=== PATIENT | female | born 1975 | race Caucasian/White ===

== ENCOUNTER 2017-05-20 06:44 | Emergency (ER) | payer SELFPAY ==
[~2017-05-20] VITALS: Ht 162.6 cm; Wt 78.7 kg
[2017-05-20 06:48] VITALS: BP 180/116; PULSE 86; RESP 18; TEMP 97.7; O2SAT 98
--- NOTE | 2017-05-20 07:05 | PD ---
HPI Chief Complaint: Musculoskeletal Complaint Time Seen by Provider: 06:48 Travel History International Travel<30 days: No Contact w/Intl Traveler<30days: No Traveled to known affect area: No History of Present Illness HPI 41 year-old female complains of left foot pain. Patient twisted the left foot about 4 months ago. Patient states that she has persistent pain to the left foot since then. Patient states that the pain is worse recently. Patient denies any other injury. Patient states the pain is sharp pain localized to the dorsal aspect of the left foot. Patient denies any pain radiation. Patient states that the pain is worse with weightbearing. PFSH Past Medical History Diminished Hearing: No Immunizations Current: Yes : 4 Para: 4 Past Surgical History Gynecologic Surgery: Yes (endomytriosis) Social History Alcohol Use: Yes (2 beers daily) Tobacco Use: No Substance Use: No Allergies-Medications (Allergen,Severity, Reaction): Coded Allergies: hydrocodone (Unverified Allergy, Severe, Itching, 05/20/17) Reported Meds & Prescriptions Reported Meds & Active Scripts Active No Active Prescriptions or Reported Medications Review of Systems General / Constitutional: No: Fever Eyes: No: Visual changes HENT: No: Headaches Cardiovascular: No: Chest Pain or Discomfort Respiratory: No: Shortness of Breath Gastrointestinal: No: Abdominal Pain Genitourinary: No: Dysuria Musculoskeletal: Positive: Pain Skin: No Rash Neurologic: No: Weakness Psychiatric: No: Depression Endocrine: No: Polydipsia Hematologic/Lymphatic: No: Easy Bruising Physical Exam Narrative GENERAL: Well-nourished, well-developed patient. SKIN: Focused skin assessment warm/dry. HEAD: Normocephalic. EYES: No scleral icterus. No injection or drainage. NECK: Supple, trachea midline. No JVD or lymphadenopathy. CARDIOVASCULAR: Regular rate and rhythm without murmurs, gallops, or rubs. RESPIRATORY: Breath sounds equal bilaterally. No accessory muscle use. GASTROINTESTINAL: Abdomen soft, non-tender, nondistended. MUSCULOSKELETAL: No cyanosis, or edema. Patient has moderate tenderness on palpation dorsal aspect of the left foot. Mild soft tissue swelling noted. Full range of motion of the toes. BACK: Nontender without obvious deformity. No CVA tenderness. Data Data Last Documented VS Vital Signs Date Time Temp Pulse Resp B/P (MAP) Pulse Ox O2 Delivery O2 Flow Rate FiO2 1/24/18 06:48 97.7 86 18 180/116 (137) 98 Orders Orders Foot, Complete (Pat5tmo) (05/20/17 07:00) MDM Medical Decision Making Medical Screen Exam Complete: Yes Emergency Medical Condition: Yes Interpretation(s) Last Impressions Foot X-Ray 05/20/17 0700 Signed Impressions: Service Date/Time: Saturday, May 20, 2017 07:10 - CONCLUSION: Unremarkable study. K. Vernon Mahan MD Differential Diagnosis Differential diagnosis including sprain, fracture, dislocation. Narrative Course 41-year-old female with left foot pain. Status post injury. Walking boot to be ordered for patient to be put on at the main hospital. Diagnosis Primary Impression: Sprain of left foot Qualified Codes: S93.602A - Unspecified sprain of left foot, initial encounter Patient Instructions: General Instructions Additional Instructions: Take medications as needed for pain. Follow-up with orthopedist or roller print tender. Med/Other Pt SpecificInfo: Prescription(s) given Scripts Ibuprofen (Ibuprofen) 600 Mg Tab 600 MG PO TID for Pain, #60 TAB 0 Refills Prov: Parmjit Chiu MD 05/20/17 Disposition: 01 DISCHARGE HOME Condition: Stable Parmjit Chiu MD May 20, 2017 07:05
--- NOTE | 2017-05-20 07:22 | RADRPT ---
EXAM DATE/TIME: 05/20/2017 07:10 [facility] COMPARISON: No previous studies available for comparison. INDICATIONS : Pain on top of left foot, no known injury. MEDICAL HISTORY : None. SURGICAL HISTORY : None. ENCOUNTER: Initial ACUITY: 1 month PAIN SCORE: 8/10 LOCATION: Left top of foot FINDINGS: No definite fractures, or dislocations are identified. No definite lytic or sclerotic lesion is seen . The joint spaces are well maintained. CONCLUSION: Unremarkable study. Yomi Mahan MD on May 20, 2017 at 7:20 Board Certified Radiologist. This report was verified electronically.
[2017-05-20] MEDS ORDERED: IBUP-232 PO (07:35)
[2017-05-20 07:51] VITALS: BP 185/97
== END 2017-05-20 07:54 | disposition home or self-care (01) ==
LOC: PHED 06:44
DX: S93.602A Unspecified sprain of left foot, initial encounter (principal); Z88.5 Allergy status to narcotic agent; X50.1XXA Overexertion from prolonged static or awkward postures, initial encounter; Y93.9 Activity, unspecified; Y92.9 Unspecified place or not applicable; Y99.9 Unspecified external cause status
CPT/HCPCS: 73630; 99283

== ENCOUNTER → 2017-05-20 | Outpatient (CLI) | payer SELFPAY ==
[~2017-05-20] MED LIST: IBUP-232 PO
== END ==
LOC: HORT 08:27
PROVIDERS: ATTEND Family Medicine
DX: Z47.89 Encounter for other orthopedic aftercare (principal)
CPT/HCPCS: L2114